=== PATIENT | male | born 1975 | race Caucasian/White ===

== ENCOUNTER 2016-07-24 22:17 | Emergency (ER) | payer SELFPAY ==
[2010-05-26 09:21] VITALS: BMI 35.9
[2016-07-24 22:53] LABS: APPEARANCE CLEAR (CLEAR); COLOR YELLOW (YELLOW); LEUKOCYTE ESTERASE NEGATIVE (NEGATIVE); NITRITE NEGATIVE (NEGATIVE)
[2016-07-24 22:54] LABS: BILIRUBIN NEGATIVE (NEGATIVE); GLUCOSE NEGATIVE (NEGATIVE); KETONE NEGATIVE (NEGATIVE); PROTEIN TRACE mg/dL (NEGATIVE); UROBILINOGEN NORMAL (NORMAL)
[2016-07-24 23:03] LABS: BASOPHILS 0.2 % (0-2); EOSINOPHILS 0.9 % (0-7); HEMATOCRIT 43.9 % (42.0-54.0); HEMOGLOBIN 14.6 g/dL (13.5-17.5); IMMATURE GRANULOCYTES 0.2 % (0-5); LYMPHOCYTES 15.4 % (15-50); MCH 29.2 pg (26.0-34.0); MCHC 33.3 g/dL (31.0-37.0); MCV 87.8 fL (80.0-100.0); MEAN PLATELET VOLUME 10.6 fL (7.4-10.4); MONOCYTES 6.7 % (2-11); NEUTROPHILS 76.6 % (40-80); PLATELET COUNT 232 10x3/uL (130-400); RDW 13.3 % (11.5-14.5); WBC 11.6 10x3/uL (4.8-10.8)
[2016-07-24 23:39] LABS: ANION GAP 12.4 mmol/L (8-16); BILIRUBIN - TOTAL 0.47 mg/dL (0.2-1.3); CALCIUM 9.3 mg/dL (8.5-10.1); CARBON DIOXIDE 29.2 mmol/L (21.0-32.0); CREATININE - SERUM 1.3 mg/dL (0.6-1.3); POTASSIUM - SERUM 3.6 mmol/L (3.5-5.1); PROTEIN - SERUM 7.8 g/dL (6.4-8.2)
== END 2016-07-25 00:20 | disposition home or self-care (01) ==
LOC: D.ER 22:17
PROVIDERS: Family Medicine
DX: N20.1 Calculus of ureter (principal)

== ENCOUNTER 2019-04-14 17:36 | Observation (INO) | payer OTHER ==
[~2019-04-14] VITALS: Ht 152.4 cm; Wt 115.7 kg
[2019-04-14] MEDS ORDERED: NORVASC5 MG PO (18:09)
--- NOTE | 2019-04-14 18:43 | NUR ---
TRIAGE NURSE REPORTS PATIENT'S BLOOD PRESSURE IN TRIAGE WAS 178/118.
--- NOTE | 2019-04-14 18:55 | NUR ---
REPORT TO PA TEJEDA
[2019-04-14 19:02] LABS: BASOPHILS 0.2 % (0-2); EOSINOPHILS 4.2 % (0-7); HEMATOCRIT 42.6 % (42.0-54.0); IMMATURE GRANULOCYTES 0.2 % (0-5); LYMPHOCYTES 32.6 % (15-50); MCH 29.8 pg (26.0-34.0); MCHC 35.2 g/dL (31.0-37.0); MCV 84.5 fL (80.0-100.0); MEAN PLATELET VOLUME 9.9 fL (7.4-10.4); MONOCYTES 8.9 % (2-11); NEUTROPHILS 53.9 % (40-80); PLATELET COUNT 243 10x3/uL (130-400); RBC 5.04 10x6/uL (4.20-6.10); RDW 12.6 % (11.5-14.5); WBC 9.3 10x3/uL (4.8-10.8)
[2019-04-14 19:14] LABS: CALC OSMOLALITY 281 mosm/kg (275-300); CALCIUM 8.4 mg/dL (8.5-10.1); CARBON DIOXIDE 28.6 mmol/L (21.0-32.0); CHLORIDE - SERUM 104 mmol/L (98-107); CREATININE - SERUM 0.9 mg/dL (0.6-1.3); GLUCOSE 102 mg/dL (74-106); POTASSIUM - SERUM 3.7 mmol/L (3.5-5.1); SODIUM 142 mmol/L (136-145); UREA NITROGEN 10 mg/dL (7-18); eGFR NON AFRICAN AMERICAN > 90 mL/min (90-120)
[2019-04-14 19:26] VITALS: BP 144/97
[2019-04-14 19:31] LABS: ALKALINE PHOSPHATASE 85 U/L (30-120); ALT (SGPT) 43 U/L (10-68); BILIRUBIN - TOTAL 0.36 mg/dL (0.2-1.3); CKMB 0.4 U/L (0.0-3.6); CREATINE KINASE 96 UL (21-232); PROTEIN - SERUM 7.7 g/dL (6.4-8.2); TROPONIN-I < 0.017 ng/mL (0.000-0.060)
[2019-04-14 21:49] VITALS: BP 130/80
[2019-04-14 22:46] VITALS: Ht 152.4 cm; Wt 115.7 kg
[2019-04-15 00:11] VITALS: BP 130/90
--- NOTE | 2019-04-15 00:56 | NUR ---
PATIENT RESTING COMFORTABLY IN BED. RESPIRATIONS ARE EVEN AND UNLABORED. NO S/S OF DISTRESS. NO C/O PAIN. CALL LIGHT WITHIN REACH. WILL CPOC.
[2019-04-15 02:38] LABS: CKMB 0.5 U/L (0.0-3.6); CREATINE KINASE 85 UL (21-232)
[2019-04-15 02:41] LABS: TROPONIN-I < 0.017 ng/mL (0.000-0.060)
[2019-04-15 03:55] VITALS: BP 122/78
[2019-04-15 06:32] LABS: BASOPHILS 0.3 % (0-2); EOSINOPHILS 5.4 % (0-7); HEMATOCRIT 41.2 % (42.0-54.0); HEMOGLOBIN 14.4 g/dL (13.5-17.5); IMMATURE GRANULOCYTES 0.1 % (0-5); LYMPHOCYTES 34.5 % (15-50); MCH 29.7 pg (26.0-34.0); MCV 84.9 fL (80.0-100.0); MEAN PLATELET VOLUME 9.9 fL (7.4-10.4); MONOCYTES 9.1 % (2-11); NEUTROPHILS 50.6 % (40-80); PLATELET COUNT 224 10x3/uL (130-400); RBC 4.85 10x6/uL (4.20-6.10); RDW 12.6 % (11.5-14.5); WBC 7.8 10x3/uL (4.8-10.8)
[2019-04-15 07:22] LABS: ALBUMIN 3.6 g/dL (3.4-5.0); ALKALINE PHOSPHATASE 79 U/L (30-120); ALT (SGPT) 37 U/L (10-68); BILIRUBIN - TOTAL 0.54 mg/dL (0.2-1.3); CALC OSMOLALITY 280 mosm/kg (275-300); CALCIUM 8.7 mg/dL (8.5-10.1); CARBON DIOXIDE 27.5 mmol/L (21.0-32.0); CHLORIDE - SERUM 105 mmol/L (98-107); CKMB 0.4 U/L (0.0-3.6); CREATINE KINASE 74 UL (21-232); CREATININE - SERUM 0.9 mg/dL (0.6-1.3); GLUCOSE 104 mg/dL (74-106); PHOSPHOROUS 4.7 mg/dL (2.5-4.9); POTASSIUM - SERUM 3.7 mmol/L (3.5-5.1); SODIUM 141 mmol/L (136-145); UREA NITROGEN 12 mg/dL (7-18); eGFR NON AFRICAN AMERICAN > 90 mL/min (90-120)
[2019-04-15 07:24] LABS: TROPONIN-I < 0.017 ng/mL (0.000-0.060)
[2019-04-15 08:00] VITALS: BP 135/84
[2019-04-15] MEDS ORDERED: NORVASC10 MG PO (10:32)
--- NOTE | 2019-04-15 11:12 | NUR ---
UPON ADMIT, CLARA HAS NOT HAD A FLU SHOT. WHEN QUESTIONED FOR DISCHARGE, HE REFUSED IT.
[2019-04-15 11:25] VITALS: BP 143/92
--- NOTE | 2019-04-15 12:39 | NUR ---
IV AND TELEMETRY DCD. DC PLANS GIVEN. UNDERSTANDING VOICED.
--- NOTE | 2019-04-16 09:19 | MORECARE ---
CASE MANAGEMENT DISCHARGE SUMMARY PATIENT: KENNY MEJIA JR UNIT: [id number] ADM DATE: 04/14/19 AGE: 43 : 77 SEX: M ROOM/BED: D.2117 AUTHOR: CARO PIERRE PHYSICIAN: REFERRING PHYSICIAN: LINSEY DENIS MD DATE OF SERVICE: 04/16/19 Discharge Plan Patient Name: [facility]ENNY MEJIA [facility] [facility] 1975 Planned Disposition: Home Anticipated Discharge Date: 04/15/19 Discharge Date: 04/15/2019 Expected LOS: 1 Initial Reviewer: [email or web address] Initial Review Date: 04/16/2019 Generated: 04/16/19 10:19 am Patient Name: KENNY MEJIA Page [id number] at 0919 All edits/amendments must be made on the electronic document DICTATION DATE: 04/16/19918 PLYWOOD MATCHER: [email or web address] 04/16/19918 RPT#: [id number] DC DATE:04/15/19 STATUS: DIS IN [facility] [address] [place] [address] END OF REPORT
== END 2019-04-15 12:40 | disposition home or self-care (01) ==
LOC: D.ER 17:36 → D.M2 19:57 → OBSVTIME 20:18 → D.M2 04-15 12:40
PROVIDERS: Family Medicine; ADMIT Internal Medicine Nephrology; ATTEND Internal Medicine Nephrology
DX: R07.9 Chest pain, unspecified (principal); I10 Essential (primary) hypertension; E66.9 Obesity, unspecified